=== PATIENT | female | born 1985 | race Caucasian/White ===

== ENCOUNTER → 2023-06-01 | Outpatient (CLI) | payer BC, SELFPAY ==
--- OUTSIDE RECORDS SUMMARY | 2023-06-01 08:00 | XMS RPT_ITS | CCD ---
Author Name Unknown Address [address] [facility] [address] [place] [address] Organization [facility] Care Team Providers Care Mortgage Underwriter Name Role Phone ORSBORN, GUERLINE Unavailable Unavailable ORSBORN, GUERLINE Unavailable Unavailable NONE, NONE Unavailable Unavailable ORSBORN, GUERLINE Unavailable Unavailable NONE, NONE Unavailable Unavailable No Doctor Assigned, Nodr Primary Care Unavail able Kendall Cornelius Attending Unavailable Kendall Cornelius Admitting Unavailable KARISHMA, JOSHUA Consulting Unavailable KARISHMA, JOSHUA Primary Care Unavailable KARISHMA, JOSHUA Admitting Unavailable KARISHMA, JOSHUA Attending Unavailable PROVIDER, UNKNOWN Consulting Unavailable KARISHMA, JOSHUA Primary Care Unavailable KAIRSHMA, JOSHUA Admitting Unavailable KARISHMA, JOSHUA Referring Unavailable KARISHMA, JOSHUA Attending Unavailable KARISHMA, JOSHUA Consulting Unavailable PROVIDER, UNKNOWN Consulting Unavailable Allergies Allergy Classification Reported Allergen(s) Allergy Type Date of Onset Reaction(s) Facility (1 source) Penicillin; Translations: [penicillin] Drug Allergy [facility] Repository (1 source) Penicillins Drug allergy (disorder) [facility] [place] Repository Problems Active Problems Problem Classification Problem Date Documented Da te Episodic/Chronic Other nutritional; endocrine; and metabolic disorders (1 source) Obesity, unspecified; Translations: [Obesity, unspecified] Onset: 03-18-2023 Chronic Other screening for suspected conditions (not mental disorders or infectious disease) (3 sources) Encounter for screening for diseases of the blood and blood-forming organs and certain disorders involving the immune mechanism; Translations: [Encounter for screening for other metabolic disorders] Onset: 03-18-2023 Episodic Past or Other Problems Problem Classification Problem Date Documented Da te Episodic/Chronic Urinary tract infections (3 sources) Urinary tract infection, site not specified; Translations: [UTI SITE NOT SPECIFIED] Onset: 05-29-2017 Episodic Results Test Name Value Interpretation Reference Range Facil ity Encounters Encounter Date Encounter Type Care Provider Facility Start: 05-09-2023 End: 05-09-2023 ambulatory JOSHUAValarie SCHWARZ [facility] Start: 03-18-2023 End: 03-18-2023 ambulatory JOSHUAValarie SCHWARZ [facility] Start: 03-18-2023 Encounter for genera l adult medical examination without abnormal findings JOSHUA SCHWARZ [facility] [place] Start: 07-21-2018 End: 07-21-2018 Patient encounter procedure Nodr No Doctor Assigned Facility:[facility] Start: 05-29-2017 End: 05-30-2017 Patient encounter GUERLINE TORO Facility:[facility] Payers Date Payer Category Payer Unknown 1985 Unknown [id number] 1985 Unknown [id number] 1987 Unknown [id number] 1959 Unknown [id number] Unknown [id number] Progress note 03-30-2021 Note Date & Type Note Facility 03-30-2021 Note HNO ID: [id number] Author: Jazlyn Vazquez OD Service: ? Author Type: TERMINOLOGIST Type: Progress Notes Filed: 03/30/2021 4:03 PM Note Text: ASSESSMENT/PLAN: 1. Hyperopia of both eyes - ICD9: 367.0, ICD10: H52.03 (primary diagnosis) 2. Regular astigmatism of both eyes - ICD9: 367.21, ICD10: H52.223 Continue to wear her reading glasses with the little update as desired. Recommended yearly exams Jazlyn Vazquez OD [facility] Summary Purpose Family History No Family History Records FoundNo Family History Records FoundNo Family History Records FoundNo Family History Records FoundNo Family History Records Found Advance Directives No Advanced Directives Records FoundNo Advanced Directives Records FoundNo Advanced Directives Records FoundNo Advanced Directives Records FoundNo Advanced Directives Records Found Additional Source Comments INFORMATION SOURCE (unrecogn ized section and content) DATE CREATED AUTHOR AUTHOR'S ORGANIZ ATION 07/31/2018 [facility] DATE CREATED AUTHOR AUTHOR'S ORGANIZ ATION 08/09/2018 [facility] DATE CREATED AUTHOR AUTHOR'S ORGANIZ ATION 05/13/2021 [facility] DATE CREATED AUTHOR AUTHOR'S ORGANIZ ATION 05/10/2023 [facility] FOR RECORDS PERTAINING TO PATIENTS WHO ARE OR HAVE BEEN ENROLLED IN A CHEMICAL DEPENDENCY/SUBSTANCEABUSE PROGRAM, SOME INFORMATION MAY BE OMITTED. This clinical summary was aggregated from multiple sources. Caution should be exercised in using it in the provision of clinical care. This summary normalizes information from multiple sources, and as a consequence, information in this document may materially change the coding, format and clinical context of patient data. In addition, data may be omitted in some cases. CLINICAL DECISIONS SHOULD BE BASED ON THE PRIMARY CLINICAL RECORDS. [facility]. provides no warranty or guarantee of the accuracy or completeness of information in this document.
== END | disposition home or self-care (01) ==
LOC: LAB 07:39
PROVIDERS: PCP Nurse Practitioner Family; Referring Provider Nurse Practitioner Family; Visit Provider Nurse Practitioner Family
DX: N60.02 Solitary cyst of left breast (principal); Z80.3 Family history of malignant neoplasm of breast
CPT/HCPCS: 36415

== ENCOUNTER → 2023-07-19 | Outpatient (CLI) | payer BC, SELFPAY ==
--- NOTE | 2023-07-19 12:35 | MRI_ITS ---
STUDY: BILATERAL BREAST MR WITHOUT AND WITH CONTRAST REASON FOR EXAM: Female, 38 years old. Bilateral breast lumps TECHNIQUE: Multi-sequence multi-echo imaging of both breasts was performed with a dedicated breast coil. T1-weighted and T2-weighted images were performed before the administration of contrast. T1-weighted images were also performed after the intravenous administration of 23 cc of Clariscan contrast. COMPARISON: Bilateral ultrasound dated May 20, 2023, mammogram dated May 18, 2023. FINDINGS: RIGHT BREAST: Heterogeneously dense fibroglandular tissue with minimal background enhancement. In the slightly outer mid breast there is a lobular circumscribed enhancing mass measuring 1 cm in diameter. This likely has a fatty hilum and represents a lymph node. A second look ultrasound of the right breast with particular attention to this area 6-7 cm from the nipple and 2 cm lateral to the medical is recommended to confirm that this is a lymph node. LEFT BREAST: Heterogeneously dense fibroglandular tissue with minimal background enhancement. No abnormal enhancing masses or areas of non-mass enhancement in the left breast. Multiple non-pathologically enlarged lymph nodes in both axillae. No abnormality in the visualized regions of the chest or liver. MRI/Breast Bilateral W/O and W IMPRESSION: 1 cm in diameter lobular circumscribed ovoid enhancing mass in the right breast for which second look ultrasound is recommended. This likely represents a lymph node. No other abnormality identified, as outlined above. CATEGORY: BIRADS Category 0: Incomplete. Need additional imaging evaluation. A letter regarding these results will be sent to the patient by the facility within 30 days. Electronically Signed: Oziel Sands MD at 16:06 EDT ,
== END | disposition home or self-care (01) ==
PROVIDERS: PCP Nurse Practitioner Family; Referring Provider Surgery; Visit Provider Surgery
DX: R92.8 Other abnormal and inconclusive findings on diagnostic imaging of breast (principal); N63.10 Unspecified lump in the right breast, unspecified quadrant; N63.20 Unspecified lump in the left breast, unspecified quadrant; Z80.3 Family history of malignant neoplasm of breast
CPT/HCPCS: 77049; A9575; A4216; C8908

== ENCOUNTER → 2023-07-22 | Outpatient (CLI) | payer BC, SELFPAY ==
--- NOTE | 2023-07-22 10:49 | US_ITS ---
STUDY: ULTRASOUND BREAST - RIGHT REASON FOR EXAM: Female, 38 years old. Abnormal MRI examination. TECHNIQUE: Axial and longitudinal images of the RIGHT breast were performed with a high resolution ultrasound transducer. # OF IMAGES: 45 COMPARISON: Comparison is made with prior MRI of the breasts dated July 19, 2023. FINDINGS: RIGHT Breast: There is a 1 cm x 0.6 cm x 0.3 cm benign appearing lymph node at the 11:00 position of the breast at 6 cm from the nipple. A similar appearing hypoechoic nodule with central fatty hilum measuring 1.1 cm by 0.7 cm x 0.3 cm is seen at the 10:00 position of the breast at 4 cm from the nipple. There is also evidence of a 8mm by 8mm by 5 mm cyst at the 9:00 position of the breast at 4 cm from nipple. US/Breast Limited Unilateral IMPRESSION: The MRI findings correspond to benign appearing lymph nodes. ASSESSMENT CATEGORY: BIRADS Category 2: Benign. A letter regarding these results will be sent to the patient by the facility within 30 days. Electronically Signed: Mike Mares MD at 13:03 EDT ,
== END | disposition home or self-care (01) ==
PROVIDERS: PCP Nurse Practitioner Family; Referring Provider Surgery; Visit Provider Surgery
DX: N63.11 Unspecified lump in the right breast, upper outer quadrant (principal); Z80.3 Family history of malignant neoplasm of breast
CPT/HCPCS: 76642